=== PATIENT | female | born 1975 | race Caucasian/White ===

== ENCOUNTER 2016-09-07 07:59 | Emergency (ER) | payer OTHER ==
[~2016-09-07] VITALS: Ht 157.5 cm; Wt 70.3 kg
[2016-09-07 08:05] VITALS: BP 121/75
--- NOTE | 2016-09-07 08:52 | ED HAND/WRIST INJURY COMPLAINT ---
History of Present Illness General Chief Complaint: Laceration Procedure Stated Complaint: LAC TO FINGER Source: patient Exam Limitations: no limitations Vital Signs & Intake/Output Vital Signs & Intake/Output Vital Signs Date Time Temp Pulse Resp B/P Pulse O2 O2 Flow FiO2 Ox Delivery Rate 09/07 09 Room Air Room Air 09/07 08 98.6 76 20 121/75 99 Room Air (LEONOR GONZÁLES MD) Allergies Coded Allergies: No Known Allergies (09/07/16) Triage Note: PT STATES SHE WAS TRYING TO PUNCH A NEW HOLE INTO A BELT WITH A POCKET KNIFE WHEN IT SLIPPED. PT WITH LAC TO RIGHT INDEX FINGER Triage Nurses Notes Reviewed? yes : No Patient currently breastfeeds: No (LEONOR GONZÁLES MD) HPI: 41 YO F W/ NO SIGNIFICANT PAST MEDICAL HISTORY PRESENTING TO ED FOR R INDEX FINGER LACERATION. PATIENT STATES SHE WAS USING HER 'S POCKET KNIFE TO PLACE AN EXTRA HOLE INTO A BELT FOR HER DAUGHTER. PT'S HAND SLIPPED, CAUSING KNIFE TO SLIP AND SHE SUSTAINED A LACERATION TO DORSAL PORTION OF DIP ON R INDEX FINGER. PT WASHED AND CLEANED THE AREA WELL. 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 PT DENIES ANY ADDITIONAL TRAUMA. (RADHA MEDELLIN MD) Past History Travel History Traveled to [place] past 21 day No Surgical History Surgical History: cholecystectomy, PARTIAL HYSTERECTOMY Psychosocial History What is your primary language Syrian Tobacco Use: Never used ETOH Use: occasional use Illicit Drug Use: denies illicit drug use Family History Hx Contributory? No (LEONOR GONZÁLES MD) Medical History Any Pertinent Medical History? none Neurological: NONE EENT: NONE Surgical History Surgical History: cholecystectomy, PARTIAL HYSTERECTOMY (RADHA MEDELLIN MD) Review of Systems Review of Systems Constitutional: Denies: no symptoms. EENTM: Reports: no symptoms. Respiratory: Reports: no symptoms. Cardiovascular: Reports: no symptoms. GI: Reports: no symptoms. Genitourinary: Reports: no symptoms. Musculoskeletal: Reports: no symptoms. Skin: Reports: see HPI (LACERATION INDEX FINGER). Neurological/Psychological: Reports: no symptoms. Hematologic/Endocrine: Reports: no symptoms. Immunologic/Allergic: Reports: no symptoms. All Other Systems: Reviewed and Negative (LEONOR GONZÁLES MD) Review of Systems Constitutional: Denies: no symptoms. EENTM: Reports: no symptoms. Respiratory: Reports: no symptoms. Cardiovascular: Reports: no symptoms. GI: Reports: no symptoms. Genitourinary: Reports: no symptoms. Musculoskeletal: Reports: no symptoms. Neurological/Psychological: Reports: no symptoms. Hematologic/Endocrine: Reports: no symptoms. Immunologic/Allergic: Reports: no symptoms. All Other Systems: Reviewed and Negative (RADHA MEDELLIN MD) Physical Exam Physical Exam General Appearance: well developed/nourished, mild distress Head: atraumatic Eyes: Bilateral: PERRL, EOMI. Ears, Nose, Throat: normal pharynx, normal ENT inspection, hearing grossly normal Neck: normal inspection, supple Cardiovascular/Respiratory: normal breath sounds, regular rate/rhythm Back: normal range of motion (LEONOR GONZÁLES MD) Physical Exam General Appearance: well developed/nourished, no apparent distress, alert Head: atraumatic, normal appearance Eyes: Bilateral: normal appearance, PERRL, EOMI. Ears, Nose, Throat: normal pharynx, normal ENT inspection, hearing grossly normal Neck: normal inspection, supple, full range of motion Cardiovascular/Respiratory: normal breath sounds, normal peripheral pulses, regular rate/rhythm Back: normal range of motion Hand Left: normal inspection, normal range of motion Hand Right: lacerations (R INDEX DORSAL SURFACE 1.5CM) (RADHA MEDELLIN MD) Progress Plan of Care: PATIENT IS WELL-APPEARING. SMALL 1.5 FINGER LACERATION TO DORSUM OF R INDEX FINGER, DIAGONALL OVER DIP. NORMAL MOTOR AND SENSATION DISTAL TO INJURY. ROM INTACT. INJECTED W/ LIDOCAINE 1% (NO EPI). TWO SUTURES PLACED. PATIENT IS UNSURE OF HER TETANUS STATUS. PATIENT OKAY WITH REPEAT TETANUS TODAY. TOLERATED PROCEDURE WELL. WILL DC HOME W/ RETURN PRECAUTIONS. BACITRACIN PLACED ON WOUND AND COVERED W/ BANDAID. Differential Diagnosis: LACERATION, INFECTION, TENDON DISRUPTION Plan of Care: PATIENT IS WELL-APPEARING. SMALL 1.5 FINGER LACERATION TO DORSUM OF R INDEX FINGER, DIAGONALL OVER DIP. NORMAL MOTOR AND SENSATION DISTAL TO INJURY. ROM INTACT. INJECTED W/ LIDOCAINE 1% (NO EPI). TWO SUTURES PLACED. PATIENT IS UNSURE OF HER TETANUS STATUS. PATIENT OKAY WITH REPEAT TETANUS TODAY. TOLERATED PROCEDURE WELL. WILL DC HOME W/ RETURN PRECAUTIONS. BACITRACIN PLACED ON WOUND AND COVERED W/ BANDAID. (RADHA MEDELLIN MD) Departure Departure Time of Disposition: 0851 Disposition: HOME OR SELF CARE Condition: Stable Clinical Impression Primary Impression: Finger laceration Referrals: KAYY WILLIS DO (PCP/Family) Additional Instructions: PLEASE KEEP THE FINGER DRY AND CLEAN TODAY. YOU CAN GO TO YOUR PRIMARY CARE DOCTOR OR RETURN HERE TO HAVE THE TWO STITCHES REMOVED IN THE NEXT 7 DAYS. IF THERE IS ANY SIGN OF INFECTION (REDNESS, PUS, SWELLING), PLEASE RETURN HERE FOR EVALUATION. Departure Forms: Customer Survey General Discharge Information PA/SLATE SPLITTING SUPERVISOR Co-Sign Statement Statement: ED Attending supervision documentation- [] I saw and evaluated the patient. I have also reviewed all the pertinent lab results and diagnostic results. I agree with the findings and the plan of care as documented in the PA's/SLATE SPLITTING SUPERVISOR's documentation. [X] I have reviewed the ED Record and agree with the PA's/SLATE SPLITTING SUPERVISOR's documentation. [] Additions or exceptions (if any) to the PAs/SLATE SPLITTING SUPERVISOR's note and plan are summarized below: [] (NIVIA FERRARI,LEONOR) Procedures Laceration/Wound Repair Laceration/Wound Repair: Wound Location: upper extremity, R INDEX FINGER Wound's Depth, Shape: linear Wound Length (cm): 1.5 Wound Explored: no foreign body removed Irrigated w/ Saline (ccs): 20 Betadine Prep? Yes Anesthesia: 1% lidocaine Volume Anesthetic (ccs): 2 Wound Debrided: minimal Wound Repaired With: sutures Suture Size/Type: 5:0, proline Number of Sutures: 2 Layer Closure? No Sterile Dressing Applied: No Splint Applied? No (RADHA MEDELLIN MD) ED Attending Observation Initial Observation Note: I have seen and personally examined JOSE LUIS BACH on 09/07/16 at 0946. I agree with the current emergency department documentation. The disposition (admission or discharge) is uncertain at this time, she needs a period of observation for the following reason(s): The ED Nurse caring for this patient has been personally informed as to what the patient is being observed for. (RADHA MEDELLIN MD)
== END 2016-09-07 09:06 ==
LOC: ERH 07:59
DX: S61.210A Laceration without foreign body of right index finger without damage to nail, initial encounter (principal); W26.0XXA Contact with knife, initial encounter
CPT/HCPCS: 90471; 90714

== ENCOUNTER 2016-09-13 10:46 | Emergency (ER) | payer OTHER ==
[~2016-09-13] VITALS: Ht 157.5 cm; Wt 69.9 kg
[2016-09-13 11:04] VITALS: BP 140/83
--- NOTE | 2016-09-13 11:55 | ED GENERAL ADULT ---
History of Present Illness General Chief Complaint: Suture Removal/Wound Recheck Stated Complaint: SUTURE REMOVAL Source: patient Exam Limitations: no limitations Vital Signs & Intake/Output Vital Signs & Intake/Output Vital Signs Date Time Temp Pulse Resp B/P Pulse O2 O2 Flow FiO2 Ox Delivery Rate 09/13 1104 97.7 78 18 140/83 98 Room Air Allergies Coded Allergies: No Known Allergies (09/07/16) Triage Note: HERE TO HAVE SUTURES REMOVED FROM R INDEX FINGER Triage Nurses Notes Reviewed? yes Onset: Abrupt Duration: day(s): Timing: recent history : No Patient currently breastfeeds: No HPI: 09/13/16 11:30 AM 41-year-old female presents to the emergency department for suture removal. The patient states she sustained a laceration to her right index finger approximately 7 days ago. She has no complaints. On physical exam she has a clean sutured wound to the right index finger, there is no redness or erythema. There is no pus or drainage. The onset of the symptoms were abrupt, duration was 7 days, the severity was significant as her symptoms required her to come to the emergency department for care. The 2 sutures were removed by me without complication and a Band-Aid was placed. Past History Travel History Traveled to [place] past 21 day No Medical History Any Pertinent Medical History? see below for history Neurological: NONE EENT: NONE Cardiovascular: NONE Respiratory: NONE Gastrointestinal: NONE Hepatic: NONE Renal: NONE Musculoskeletal: NONE Psychiatric: NONE Endocrine: NONE Blood Disorders: NONE Cancer(s): NONE Tetanus Vaccine: 09/07/16 Surgical History Surgical History: cholecystectomy, PARTIAL HYSTERECTOMY Psychosocial History What is your primary language Irish Tobacco Use: Never used ETOH Use: denies use Illicit Drug Use: denies illicit drug use Family History Hx Contributory? No Review of Systems Review of Systems Constitutional: Denies: fever. EENTM: Reports: no symptoms. Respiratory: Reports: no symptoms. Cardiovascular: Reports: no symptoms. GI: Reports: no symptoms. Genitourinary: Reports: no symptoms. Musculoskeletal: Reports: no symptoms. Skin: Reports: see HPI. Neurological/Psychological: Reports: no symptoms. Hematologic/Endocrine: Reports: no symptoms. Immunologic/Allergic: Reports: no symptoms. Physical Exam Physical Exam General Appearance: well developed/nourished, alert, awake, anxious, mild distress Head: atraumatic, normal appearance Eyes: Bilateral: normal appearance, PERRL, EOMI. Ears, Nose, Throat: normal ENT inspection Neck: normal inspection Respiratory: no respiratory distress Cardiovascular: regular rate/rhythm Peripheral Pulses: 4+ radial (R) Extremities: Clean sutured wound to the right index finger Neurologic/Psych: flexor digitorum superficialis and flexor digitorum profundus are intact on the right index finger Skin: sutured wound Core Measures ACS in differential dx? No CVA/TIA Diagnosis: No Severe Sepsis Present: No Septic Shock Present: No Progress Differential Diagnoses I considered the following diagnoses in my evaluation of the patient: [Wound infection, tendon injury, foreign body, nerve injury] Plan of Care: The patient will follow up as needed Initial ED EKG: none Departure Departure Disposition: HOME OR SELF CARE Condition: Stable Clinical Impression Primary Impression: Visit for suture removal Referrals: KAYY WILLIS DO (PCP/Family) Departure Forms: Customer Survey General Discharge Information Critical Care Note Critical Care Note Critical Care Time: non-applicable
== END 2016-09-13 12:01 ==
LOC: ERH 10:46
DX: S61.210D Laceration without foreign body of right index finger without damage to nail, subsequent encounter (principal)
CPT/HCPCS: 99281

== ENCOUNTER 2016-11-10 13:41 | Emergency (ER) | payer OTHER ==
[~2016-11-10] VITALS: Ht 157.5 cm; Wt 70.8 kg
--- NOTE | 2016-11-10 15:38 | ED HAND/WRIST INJURY COMPLAINT ---
History of Present Illness General Chief Complaint: Laceration Procedure Stated Complaint: LAC TO L HAND Source: patient Exam Limitations: no limitations Vital Signs & Intake/Output Vital Signs & Intake/Output Vital Signs Date Time Temp Pulse Resp B/P B/P Pulse O2 O2 Flow FiO2 Mean Ox Delivery Rate 11/10 1544 Room Air 11/10 1346 98.5 74 16 129/79 99 Room Air Allergies Coded Allergies: No Known Allergies (09/07/16) Triage Note: PT TO ED WITH LAC TO L PALM OF HAND. 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 Triage Nurses Notes Reviewed? yes Occurred: just prior to arrival Duration: hour(s): (4) Timing: remote history Injury Environment: home Severity: mild Severity Numbers: 3 Pain/Injury Location: Left: Hand. Context: laceration Method of Injury: laceration No Modifying Factors: none : No Patient currently breastfeeds: No HPI: Patient is a 41-year-old female presenting to the emergency department with chief complaint of laceration to left hand that happened just prior to arrival. She was cleaning statue when it broke and cough her left hand. Pain is minimal. She came in for evaluation because she cannot stop the bleeding. The cut seemed to open every time she moved. Up-to-date with tetanus immunization. No numbness or tingling. Denies any other injuries. Past History Travel History Traveled to [place] past 21 day No Medical History Any Pertinent Medical History? see below for history Neurological: NONE EENT: NONE Cardiovascular: NONE Respiratory: NONE Gastrointestinal: NONE Hepatic: NONE Renal: NONE Musculoskeletal: NONE Psychiatric: NONE Endocrine: NONE Blood Disorders: NONE Cancer(s): NONE Tetanus Vaccine: 09/07/16 Surgical History Surgical History: cholecystectomy, PARTIAL HYSTERECTOMY Psychosocial History What is your primary language Bolivian Tobacco Use: Never used Family History Hx Contributory? No Review of Systems Review of Systems Constitutional: Reports: no symptoms. Comments Review of systems: See HPI, All other systems negative. Constitutional, no chills fever or weight loss HEENT: No visual changes no sore throat no congestion Cardiovascular: No chest pain Skin, no jaundice no rashes Respiratory: No dyspnea cough sputum or hemoptysis GI: No nausea no vomiting Muscle skeletal: no back pain, no neck pain, Neurologic: No numbness Immunology: No splenectomy or history of AIDS Physical Exam Physical Exam General Appearance: well developed/nourished, no apparent distress, alert, awake , comfortable Hand Left: lacerations Hand Right: normal inspection, normal range of motion Comments: Well-developed well-nourished person in no acute distress HEENT: Nose is atraumatic. Neck: Normal inspection Cardiovascular: normal JVP Respiratory: No respiratory distress. Extremity: No edema, and motion of upper extremity bilaterally. Little move all digits without difficulties or pain. Radial pulses are 2+ bilaterally. Neuro: Alert oriented x3, motor sensory normal intact in upper chilies bilaterally. Skin: There is a 1 cm subcutaneous laceration noted on the thenar eminence of the left hand. No surrounding erythema or edema. No foreign bodies. Nontender to palpation. Psych: Mood and affect is normal, memory and judgment is normal. Progress Differential Diagnosis: laceration, abrasion, contusion, skin avulsion Plan of Care: Wound was cleaned and prepped with Betadine. Sutures placed. Patient will return in 7-10 days for suture removal. Departure Departure Time of Disposition: 1543 Disposition: HOME OR SELF CARE Condition: Stable Clinical Impression Primary Impression: Laceration Referrals: KAYY WILLIS DO (PCP/Family) Additional Instructions: Follow-up in 7-10 days for suture removal. Keep clean and dry. Take over-the- counter Motrin and Tylenol as directed for any aches or pains. Return for worsening symptoms or concerns. Departure Forms: Customer Survey General Discharge Information Procedures Laceration/Wound Repair Laceration/Wound Repair: Wound Location: upper extremity Wound's Depth, Shape: subcutaneous Wound Length (cm): 1 Wound Explored: clean, irrigated extensively Irrigated w/ Saline (ccs): 250 Betadine Prep? Yes Anesthesia: 1% lidocaine Volume Anesthetic (ccs): 2 Wound Debrided: minimal Wound Repaired With: sutures Suture Size/Type: 5:0, nylon Number of Sutures: 2 Layer Closure? No Tetanus Status: up to date Progress: Patient tolerated procedure well.
[2016-11-10 16:19] VITALS: BP 108/67
== END 2016-11-10 16:23 ==
LOC: ERH 13:41
DX: S61.412A Laceration without foreign body of left hand, initial encounter (principal); W25.XXXA Contact with sharp glass, initial encounter; Y93.89 Activity, other specified; Y92.9 Unspecified place or not applicable